=== PATIENT | male | born 1950 ===

== ENCOUNTER 2017-09-19 07:18 | Day surgery (SDC) | payer MEDICARE, MEDICAID ==
[2017-09-19] MEDS ORDERED: Lactated Ringer's 500 ML IV ONE (08:09)
[2017-09-19] MEDS ORDERED: Propofol 10 mg/ml Inj (20 ML) ONE (09:43)
[2017-09-19 10:32] VITALS: RESP 16; TEMP 96
[2017-09-19 10:44] VITALS: BP 126/76; PULSE 55; O2SAT 98
== END 2017-09-19 11:35 | disposition home or self-care (01) ==
LOC: H.ENDO 07:18
PROVIDERS: ATTEND Internal Medicine Gastroenterology
DX: Z12.11 Encounter for screening for malignant neoplasm of colon (principal); E11.9 Type 2 diabetes mellitus without complications; I10 Essential (primary) hypertension; K64.8 Other hemorrhoids; K29.50 Unspecified chronic gastritis without bleeding; K30 Functional dyspepsia; K31.7 Polyp of stomach and duodenum
CPT/HCPCS: 43239; 45378; 82948; 88305; J2001; J2704; J7120